=== PATIENT | female | born 1960 | race Caucasian/White ===

== ENCOUNTER → 2016-08-04 | Outpatient (CLI) | payer OTHER | LOC: RAD 15:36 | PROVIDERS: ATTEND Internal Medicine Pulmonary Disease | DX: C34.91 Malignant neoplasm of unspecified part of right bronchus or lung (principal); R91.8 Other nonspecific abnormal finding of lung field | CPT/HCPCS: 78814; A9552 ==

== ENCOUNTER → 2016-10-29 | Day surgery (SDC) | payer OTHER ==
[~2016-10-29] MED LIST: LIDOCAINE 1% INJ-PF (10 MG/ML) 30 ML SDV ONE
== END ==
LOC: RAD 12:14
PROVIDERS: ATTEND Orthopaedic Surgery
PROC: BP09ZZZ Plain Radiography of Left Shoulder (ICD-10-PCS; principal; 2016-10-29)
DX: M25.512 Pain in left shoulder (principal)
CPT/HCPCS: 73222; 73040; 77002; A9576; J3490

== ENCOUNTER → 2018-12-29 | Outpatient (CLI) | payer OTHER ==
[2018-12-29 11:35] LABS: ABSOLUTE EOSINOPHILS # (AUTO) 0.1 10^3/uL (0.0-0.6); ABSOLUTE LYMPHOCYTES (AUTO) 1.2 10^3/uL (0.5-4.7); ABSOLUTE MONOCYTES (AUTO) 0.3 10^3/uL (0.1-1.4); ABSOLUTE NEUT (AUTO) 2.7 10^3/uL (1.7-8.2); BASOPHILS % (AUTO) 0.9 % (0-2); EOSINOPHILS % (AUTO) 2.3 % (0-6); HEMATOCRIT 37.4 % (36.0-47.0); HEMOGLOBIN 12.9 g/dL (12.0-15.5); LYMPHOCYTES % (AUTO) 27.3 % (13-45); MEAN CORPUSCULAR HEMOGLOBIN 30.2 pg (27.0-33.4); MEAN CORPUSCULAR HGB CONC 34.4 g/dL (32.0-36.0); MEAN CORPUSCULAR VOLUME 88 fl (80-97); MONOCYTES % (AUTO) 7.8 % (3-13); PLATELET COUNT 314 10^3/uL (150-450); RED BLOOD COUNT 4.25 10^6/uL (3.72-5.28); RED CELL DISTRIBUTION WIDTH 15.8 % (11.5-14.0); SEGMENTED NEUTROPHILS % (AUTO) 61.7 % (42-78); TOTAL CELLS COUNTED % (AUTO) 100 %; WHITE BLOOD COUNT 4.4 10^3/uL (4.0-10.5)
[2018-12-29 12:15] LABS: ERYTHROCYTE SEDIMENTATION RATE 34 mm/hr (0-30)
== END ==
LOC: OD 10:50
PROVIDERS: ATTEND Internal Medicine
DX: R51 Headache (principal)
CPT/HCPCS: 36415; 85025; 85652; 86140

== ENCOUNTER → 2019-09-07 | Outpatient (CLI) | payer OTHER ==
[2019-09-07 13:06] LABS: HEMATOCRIT 38.4 % (36.0-47.0); HEMOGLOBIN 12.9 g/dL (12.0-15.5); MEAN CORPUSCULAR HEMOGLOBIN 29.7 pg (27.0-33.4); MEAN CORPUSCULAR HGB CONC 33.7 g/dL (32.0-36.0); MEAN CORPUSCULAR VOLUME 88 fl (80-97); PLATELET COUNT 263 10^3/uL (150-450); RED BLOOD COUNT 4.36 10^6/uL (3.72-5.28); RED CELL DISTRIBUTION WIDTH 14.6 % (11.5-14.0)
[2019-09-07 13:34] LABS: ALBUMIN 4.2 g/dL (3.5-5.0); ALKALINE PHOSPHATASE 97 U/L (38-126); ANION GAP 9 (5-19); ASPARTATE AMINO TRANSFERASE 18 U/L (14-36); BILIRUBIN,TOTAL 0.7 mg/dL (0.2-1.3); BLOOD UREA NITROGEN 10 mg/dL (7-20); CALCIUM 9.5 mg/dL (8.4-10.2); CARBON DIOXIDE 26 mmol/L (22-30); CHLORIDE 102 mmol/L (98-107); GLUCOSE 85 mg/dL (75-110); POTASSIUM 5.4 mmol/L (3.6-5.0); TOTAL PROTEIN 6.7 g/dL (6.3-8.2)
[2019-09-08 15:17] LABS: C DIFFICILE GDH NEGATIVE (NEGATIVE)
== END ==
LOC: OD 11:33
PROVIDERS: ATTEND Family Medicine
DX: A09 Infectious gastroenteritis and colitis, unspecified (principal); R55 Syncope and collapse; R11.0 Nausea
CPT/HCPCS: 36415; 80053; 83690; 85027; 87205; 87324; 87449

== ENCOUNTER → 2019-09-13 | Outpatient (CLI) | payer OTHER ==
[2019-09-13 14:56] LABS: A TYPE INFLUENZA AG NEGATIVE (NEGATIVE); B INFLUENZA AG NEGATIVE (NEGATIVE)
== END ==
LOC: RDC 13:50
PROVIDERS: ATTEND Registered Nurse
DX: Z20.828 Contact with and (suspected) exposure to other viral communicable diseases (principal)
CPT/HCPCS: 36415; 87070; 87635; 87804; 87880

== ENCOUNTER 2020-04-18 18:03 | Emergency (ER) | payer OTHER ==
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
[2020-04-18] MEDS ORDERED: PROCHLORPERAZINE EDISYLATE INJ 10 MG/2 ML VIAL IV ONE (18:32)
[2020-04-18] MEDS ORDERED: DIPHENHYDRAMINE HCL 50 MG/ML VIAL IV ONE (18:32)
--- NOTE | 2020-04-18 18:34 | ER Document Report ---
ED General - General Stated Complaint: POSSIBLE STROKE Time Seen by Provider: 04/18/20 18:04 Primary Care Provider: PARDEEP MENDEZ MD [Primary Care Provider] - Follow up as needed TRAVEL OUTSIDE OF THE [place] IN LAST 30 DAYS: No - HPI Notes: 59-year-old female presents with tingling to the left side of her body. Patient states that around noon she had onset of headache, dizziness, fatigue, pink v ision in her left eye, numbness and tingling to her left arm and leg. She states her symptoms have become progressively worse. She has been able to ambulate since the onset of her symptoms. She states that on December 29 she was diagnosed with a mini stroke while she was in [place], states she had CTs and MRIs done, states it was not from a hemorrhage but likely a small blood clot. She takes 81 mg aspirin daily. She has had no known injuries. Denies chest pain or shortness of breath. Reports a stomachache. She has a history of migraines though it has been several years since her last headache. She has a history of small cell lung cancer, underwent chemo/radiation, has been in [employer] for 12 years. - Related Data Allergies/Adverse Reactions: sumatriptan [From Imitrex] Allergy (Unknown, Verified 08/03/12 12:01) every side effect there is sumatriptan succinate [From Imitrex] Allergy (Unknown, Verified 08/03/12 12:01) every side effect there is Past Medical History - General Information source: Patient - Social History Smoking Status: Former Smoker Family History: Reviewed & Not Pertinent - Past Medical History Cardiac Medical History: Denies: Hx Coronary Artery Disease, Hx Heart Attack, Hx Hypertension Pulmonary Medical History: Denies: Hx Asthma, Hx Bronchitis, Hx COPD, Hx Pneumonia Neurological Medical History: Denies: Hx Cerebrovascular Accident, Hx Seizures GI Medical History: Denies: Hx Hepatitis, Hx Hiatal Hernia, Hx Ulcer Musculoskeletal Medical History: Denies Hx Arthritis Infectious Medical History: Denies: Hx Hepatitis Past Surgical History: Reports: Hx Appendectomy, Hx Cholecystectomy, Hx Hysterectomy, Hx Orthopedic Surgery - R and L knee. Denies: Hx Mastectomy, Hx Open Heart Surgery, Hx Pacemaker - Immunizations Hx Diphtheria, Pertussis, Tetanus Vaccination: No Hx Pneumococcal Vaccination: 06/23/08 Review of Systems - Review of Systems Constitutional: denies: Fever EENT: See HPI Cardiovascular: denies: Chest pain Respiratory: denies: Short of breath Gastrointestinal: Nausea Genitourinary: No symptoms reported Female Genitourinary: No symptoms reported Musculoskeletal: No symptoms reported Hematologic/Lymphatic: No symptoms reported Neurological/Psychological: See HPI Physical Exam - Vital signs Vitals: Temp 98.5 F 04/18/20 18:03 - General General appearance: Appears well, Alert In distress: None - HEENT Head: Normocephalic, Atraumatic Extraocular movements intact: Yes Pupils: PERRL - Respiratory Breath sounds: Normal - Cardiovascular Rhythm: Regular Heart sounds: Normal auscultation Pulses: Normal: Dorsalis pedis Normal capillary refill: Yes - Abdominal Distension: No distension Tenderness: Nontender - Extremities General upper extremity: Normal ROM General lower extremity: Normal ROM. No: Edema - Neurological Cognition: Normal Orientation: AAOx4 Notes: Face is symmetric, speech is clear, shoulders shrug symmetric. Strength is 5/5 in the upper extremities, no drift. Intact sensation to right arm, patient reports no sensation to left arm although she had pain with IV placement. Strength is 5/5 in the lower extremities, no drift. Intact sensation to the right leg, patient reports no sensation to the left leg although she had facial grimacing when pinched. Coordination intact. NIHSS 0 - Psychological Associated symptoms: Normal affect - Skin Skin Temperature: Warm Course - Re-evaluation Re-evalutation: 59-year-old female here with reported left body numbness/tingling onset at noon, additionally had headache and pink vision which could be concerning for aura. On exam patient has no gross neuro deficits. Her she reports subjective numbness although she had several indicators that she was experiencing pain. She was immediately taken to head CT via the triage process, no blood. Given her history of reported ?TIA, will order MRI to fully assess for ischemic event. Migraine headache is a possibility as well, will trial Compazine/Benadryl for symptoms. 04/18/20 19:20 Labs unremarkable 04/18/20 21:34 MRI results available, images reviewed. Per radiology no acute ischemic abnormalities. There is some evidence for possible demyelinating process, will discuss with patient. 04/18/20 21:36 Patient states that the numbness/tingling that she was experiencing has now completely resolved. I updated her on the MRI findings. She states that she has had radiation to her brain, this potentially could account for the abnormal signal abnormalities. She has a neurology appointment on April 24 at [facility]. I have asked special investigation unit investigator to bring her a copy of the MRI. Patient is eager to go home peer return precautions given, patient stable at time of discharge. - Vital Signs Vital signs: Temp Pulse Resp BP Pulse Ox 98.5 F 83 18 106/62 97 04/18/20 18:03 04/18/20 18:30 04/18/20 18:30 04/18/20 18:30 04/18/20 18:30 - Laboratory Result Diagrams: 04/18/20 18:28 04/18/20 18:28 Laboratory results interpreted by me: 04/18/20 04/18/20 18: 18:28 RDW 15.7 H Chloride 108 H - Diagnostic Test Radiology reviewed: Image reviewed, Reports reviewed - EKG Interpretation by Me Additional EKG results interpreted by me: EKG is interpreted by me. Sinus rhythm, rate 90. Narrow QRS, QTC within normal limits. Nonspecific ST changes without ST elevation. No previous available for comparison. Discharge - Discharge Clinical Impression: Tingling in extremities Migraine headache with aura Qualifiers: Status migrainosus presence: without status migrainosus Intractability: not intractable Qualified Code(s): G43.109 - Migraine with aura, not intractable, without status migrainosus Disposition: HOME, SELF-CARE Additional Instructions: Please follow-up with neurology as planned, please bring the CD with you which has the MRI. Please continue all medications as prescribed. Turn to the emergency department for any concerning worsening symptoms. Referrals: PARDEEP MENDEZ MD [Primary Care Provider] - Follow up as needed
--- NOTE | 2020-04-18 18:37 | RADIOLOGY REPORT (SQ) ---
EXAM DESCRIPTION: CHEST SINGLE VIEW IMAGES COMPLETED DATE/TIME: 04/18/2020 6:24 pm REASON FOR STUDY: stroke like s/s COMPARISON: 09/03/2010 EXAM PARAMETERS: NUMBER OF VIEWS: One view. TECHNIQUE: Single frontal radiographic view of the chest acquired. RADIATION DOSE: NA LIMITATIONS: None. FINDINGS: LUNGS AND PLEURA: Stable chronic right perihilar and right peritracheal interstitial paul ges may be related to prior radiation therapy. Loss of volume in the right hemithorax. No pneumotho rax or pleural effusion. MEDIASTINUM AND HILAR STRUCTURES: No masses. Contour normal. HEART AND VASCULAR STRUCTURES: Heart normal in size. Normal vasculature. BONES: No acute findings. HARDWARE: None in the chest. OTHER: No other significant finding. IMPRESSION: 1. Loss of volume and state chronic right paratracheal and right perihilar scar/fibrosi s maybe related to post radiation therapy changes, since the prior study dated 09/03/2010. No acute p ulmonary findings. TECHNICAL DOCUMENTATION: JOB ID: [id number] 2010 [employer]- All Rights Reserved Reading location - IP/workstation name: [email or web address]
[2020-04-18 18:45] LABS: ABSOLUTE EOSINOPHILS # (AUTO) 0.2 10^3/uL (0.0-0.6); ABSOLUTE LYMPHOCYTES (AUTO) 1.5 10^3/uL (0.5-4.7); ABSOLUTE MONOCYTES (AUTO) 0.4 10^3/uL (0.1-1.4); ABSOLUTE NEUT (AUTO) 3.8 10^3/uL (1.7-8.2); BASOPHILS % (AUTO) 0.7 % (0-2); EOSINOPHILS % (AUTO) 2.9 % (0-6); HEMATOCRIT 36.7 % (36.0-47.0); HEMOGLOBIN 13.1 g/dL (12.0-15.5); LYMPHOCYTES % (AUTO) 25.4 % (13-45); MEAN CORPUSCULAR HEMOGLOBIN 30.7 pg (27.0-33.4); MEAN CORPUSCULAR HGB CONC 35.8 g/dL (32.0-36.0); MEAN CORPUSCULAR VOLUME 86 fl (80-97); MONOCYTES % (AUTO) 7.1 % (3-13); PLATELET COUNT 266 10^3/uL (150-450); RED BLOOD COUNT 4.28 10^6/uL (3.72-5.28); RED CELL DISTRIBUTION WIDTH 15.7 % (11.5-14.0); SEGMENTED NEUTROPHILS % (AUTO) 63.9 % (42-78); TOTAL CELLS COUNTED % (AUTO) 100 %; WHITE BLOOD COUNT 5.9 10^3/uL (4.0-10.5)
--- NOTE | 2020-04-18 18:45 | RADIOLOGY REPORT (SQ) ---
EXAM DESCRIPTION: CT HEAD WITHOUT IMAGES COMPLETED DATE/TIME: 04/18/2020 5:17 pm REASON FOR STUDY: L arm n/t, loss of vision L eye, stroke like s/s COMPARISON: None. TECHNIQUE: Axial images acquired through the brain without intravenous contrast. Images reviewed wi th bone, brain and subdural windows. Additional sagittal and coronal reconstructions were generated. Images stored on PACS. All CT scanners at this facility use dose modulation, iterative reconstruction, and/or weight based d osing when appropriate to reduce radiation dose to as low as reasonably achievable (ALARA). [facility]: Dose Right [facility]: CareDose [facility]: Dose Right [facility]: Teradose 4D [facility]: [id number] RADIATION DOSE: CT Rad equipment meets quality standard of care and radiation dose reduction techniq ues were employed. CTDIvol: 53.2 mGy. DLP: 1044 mGy-cm. mGy. LIMITATIONS: None. FINDINGS: VENTRICLES: Normal size and contour. CEREBRUM: No masses. No hemorrhage. No midline shift. No evidence for acute infarction. Normal gra y-white matter differentiation. Mild patchy periventricular, deep, and subcortical white matter hypo dense attenuation consistent with mild chronic small vessel ischemic change. Focal age-indeterminate lacunar infarct right basal ganglia. No acute territorial infarct. CEREBELLUM: No masses. No hemorrhage. No alteration of density. No evidence for acute infarction. EXTRAAXIAL SPACES: No fluid collections. No masses. ORBITS AND GLOBE: No intra- or extraconal masses. Normal contour of globe without masses. CALVARIUM: No fracture. PARANASAL SINUSES: No fluid or mucosal thickening. SOFT TISSUES: No mass or hematoma. OTHER: No other significant finding. IMPRESSION: 1. No acute intracranial hemorrhage, mass, or evidence of acute territorial infarct. 2. Moderate chronic small vessel ischemic change. 3. Focal lacunar infarct right basal ganglia, technically age indeterminate. EVIDENCE OF ACUTE STROKE: NO. COMMENT: Quality ID # [id number]: Final reports with documentation of one or more dose reduction techniques (e.g., Automated exposure control, adjustment of the mA and/or kV according to patient size, use of iterative reconstruction technique) TECHNICAL DOCUMENTATION: JOB ID: [id number] 2010 [employer]- All Rights Reserved Reading location - IP/workstation name: [email or web address]
[2020-04-18 18:51] LABS: INTERNATIONAL RATION (INR) 1.05; PROTHROMBIN TIME 13.9 SEC (11.4-15.4)
[2020-04-18 19:04] LABS: ALBUMIN 4.5 g/dL (3.5-5.0); ALKALINE PHOSPHATASE 106 U/L (38-126); ANION GAP 9 (5-19); ASPARTATE AMINO TRANSFERASE 20 U/L (14-36); BILIRUBIN,DIRECT 0.1 mg/dL (0.0-0.4); BILIRUBIN,TOTAL 0.5 mg/dL (0.2-1.3); BLOOD UREA NITROGEN 7 mg/dL (7-20); CALCIUM 9.8 mg/dL (8.4-10.2); CARBON DIOXIDE 25 mmol/L (22-30); CHLORIDE 108 mmol/L (98-107); GLUCOSE 84 mg/dL (75-110); TOTAL PROTEIN 7.1 g/dL (6.3-8.2)
--- NOTE | 2020-04-18 21:08 | RADIOLOGY REPORT (SQ) ---
EXAM DESCRIPTION: MR BRAIN WITHOUT IV CONTRAST COMPLETED DATE/TME: 04/18/2020 18:20 CLINICAL HISTORY: 59 years, Female, eval CVA, L deficits EXAM DESCRIPTION: CLINICAL HISTORY: eval CVA, L deficits COMPARISON: None TECHNIQUE: Multiplanar multisequence imaging of the brain without the intravenous administration of contrast. FINDINGS: There is no evidence of acute ischemia. Scattered nonspecific foci of increased T2 signal intensity do not exert significant mass effect on surrounding structures.Scattered foci of increased T2 signal that are well-defined and are likely sequela of prior insult are seen as well. There is no evidence of acute mass, mass effect, midline shift or hemorrhage. No focal abnormal extra-axial fluid collection is seen. The ventricles, basal cisterns and extra-axial fluid spaces are normal in size and configuration. There is a small amount of fluid in the mastoid air cells. IMPRESSION: No acute ischemic abnormalities. Widespread signal abnormalities are nonspecific. Demyelinating process such as multiple sclerosis is not excluded. The patient is younger than typically seen for these to represent widespread sequela of small vessel disease. Follow-up is recommended.
[2020-04-18 22:22] VITALS: BP 91/55
--- NOTE | 2020-04-19 07:30 | EKG REPORT ---
SEVERITY:- ABNORMAL ECG - SINUS RHYTHM LEFT ANTERIOR FASCICULAR BLOCK LEFT VENTRICULAR HYPERTROPHY : Confirmed by: Daron White MD 19-Apr-2020 07:29:48
== END 2020-04-18 22:22 | disposition home or self-care (01) ==
LOC: ER 18:03
DX: G43.109 Migraine with aura, not intractable, without status migrainosus (principal); R20.2 Paresthesia of skin; R42 Dizziness and giddiness; R53.83 Other fatigue; H53.8 Other visual disturbances; R10.9 Unspecified abdominal pain; R11.0 Nausea; Z79.82 Long term (current) use of aspirin; Z86.73 Personal history of transient ischemic attack (TIA), and cerebral infarction without residual deficits; Z85.118 Personal history of other malignant neoplasm of bronchus and lung; Z92.21 Personal history of antineoplastic chemotherapy; Z92.3 Personal history of irradiation; Z90.49 Acquired absence of other specified parts of digestive tract; Z90.710 Acquired absence of both cervix and uterus; Z87.891 Personal history of nicotine dependence; Z88.6 Allergy status to analgesic agent
CPT/HCPCS: 93005; 99285; 96374; 96375; 36415; 82962; 85025; 85610; 80053; 70551; 71045; 70450; 93010; J1200; J0780